=== PATIENT | male | born 1975 | race Caucasian/White ===

== ENCOUNTER 2019-01-10 17:45 | Emergency (ER) | payer SELFPAY | END 2019-01-10 20:29 | disposition home or self-care (01) | LOC: FTE 20:29 | DX: K64.4 Residual hemorrhoidal skin tags (principal) | CPT/HCPCS: 99284 ==

== ENCOUNTER 2019-01-12 22:18 | Emergency (ER) | payer SELFPAY | END 2019-01-13 03:02 | disposition home or self-care (01) | LOC: FTE 22:18 | DX: K64.9 Unspecified hemorrhoids (principal) | CPT/HCPCS: 99282 ==